=== PATIENT | female | born 1965 | race African-American/Black ===

== ENCOUNTER 2022-08-29 08:08 | Emergency (ER) | payer OTHER ==
[~2022-08-29] VITALS: Ht 162.6 cm; Wt 61.4 kg
[~2022-08-29 08:08] MED LIST: AMLO-258 PO; ASPI81TA39 PO; ATOR10TA PO; GABA-1181 PO; LISI-894 PO; LORA10TA7 PO; METF-1211 PO; NAPR-923 PO; RISP3TAB35 PO
[2022-08-29] MEDS ORDERED: KETOROLAC TROMETHAMINE 60 MG/2 ML VIAL IM ONE (12:00)
[2022-08-29 14:45] VITALS: BP 174/97
== END 2022-08-29 14:57 | disposition home or self-care (01) ==
LOC: EMS 08:11
DX: S70.02XA Contusion of left hip, initial encounter (principal); S70.12XA Contusion of left thigh, initial encounter; S93.402A Sprain of unspecified ligament of left ankle, initial encounter; E11.9 Type 2 diabetes mellitus without complications; E78.00 Pure hypercholesterolemia, unspecified; I10 Essential (primary) hypertension; F20.9 Schizophrenia, unspecified; F17.210 Nicotine dependence, cigarettes, uncomplicated; F12.90 Cannabis use, unspecified, uncomplicated; Z98.890 Other specified postprocedural states; W18.30XA Fall on same level, unspecified, initial encounter; Y93.89 Activity, other specified; Y92.89 Other specified places as the place of occurrence of the external cause; Y99.8 Other external cause status
CPT/HCPCS: 99283; 73503; 73130; 73600; 96372; J1885